=== PATIENT | male | born 1975 | race African-American/Black ===

== ENCOUNTER 2023-09-25 14:58 | Emergency (ER) | payer SELFPAY ==
[~2023-09-25] VITALS: Ht 177.8 cm; Wt 82.0 kg
[2023-09-25 15:06] VITALS: BP 136/82; PULSE 91; RESP 16; TEMP 98.8; O2SAT 100
[2023-09-25 21:30] LABS: BASOPHILS % 0.6 % (0.0-2.0); EOSINOPHILS % 3.2 % (0.0-5.0); HEMATOCRIT. 40.3 % (42.0-52.0); HEMOGLOBIN. 13.3 g/dL (14.0-18.0); LYMPHOCYTES % 33.6 % (20.0-50.0); MEAN CORPUSCULAR HEMOGLOBIN 29.8 pg (28.0-32.0); MEAN CORPUSCULAR HGB CONC 33.1 g/dL (31.0-37.0); MEAN PLATELET VOLUME 7.1 fl (7.4-10.4); MONOCYTES % 9.5 % (2.0-8.0); NEUTROPHILS % 53.1 % (40.0-76.0); PLATELET 338 x1000/uL (130-400); RED BLOOD CELL COUNT 4.47 mill/uL (4.7-6.1); RED CELL DISTRIBUTION WIDTH 14.3 % (11.6-14.6); WHITE BLOOD COUNT 8.4 x1000/uL (4.5-11.0)
[2023-09-25 21:45] LABS: ACETAMINOPHEN < 2 ug/mL (10-30); CALCIUM 9.6 mg/dL (8.7-10.4); CARBON DIOXIDE 28 mEq/L (21-32); CHLORIDE 103 mEq/L (98-107); CREATININE 1.1 mg/dL (0.6-1.3); GLUCOSE 96 mg/dL (70-105); POTASSIUM 3.7 mEq/L (3.5-5.1); SODIUM 136 mEq/L (136-145); UREA NITROGEN BLOOD 13 mg/dL (9-23)
[2023-09-25 21:52] LABS: ETHANOL BLOOD < 10 mg/dL (<10)
[2023-09-25 22:36] LABS: CLARITY URINE CLEAR (CLEAR); COLOR URINE YELLOW (YELLOW); GLUCOSE URINE NEGATIVE (NEGATIVE); KETONES URINE NEGATIVE (NEGATIVE); LEUKOCYTE ESTERASE URINE NEGATIVE (NEGATIVE); NITRITE URINE NEGATIVE (NEGATIVE); OCCULT BLOOD URINE 2+ (NEGATIVE); PROTEIN URINE NEGATIVE (NEGATIVE); SPECIFIC GRAVITY URINE 1.024 (1.005-1.030)
[2023-09-25 22:44] LABS: *AMPHETAMINES SCREEN URINE PRESUMPTIVE POSITIVE (NEGATIVE); *BARBITURATES SCREEN URINE NEGATIVE (NEGATIVE); *BENZODIAZEPINES SCREEN URINE NEGATIVE (NEGATIVE); *COCAINE SCREEN URINE NEGATIVE (NEGATIVE); CANNABINOID URINE SCREEN PRESUMPTIVE POSITIVE (NEGATIVE); ECSTASY MDMA SCREEN URINE NEGATIVE (NEGATIVE); METHADONE URINE SCREEN Neg (NEGATIVE); OPIATES URINE SCREEN NEGATIVE (NEGATIVE); PHENCYCLIDINE URINE SCREEN NEGATIVE (NEGATIVE)
[2023-09-25 22:51] LABS: BACTERIA URINE 1+; SQUAMOUS EPITHELIAL CELL URINE FEW /lpf (RARE/1+); WBC URINE 0-2 /hpf (0-2)
[2023-09-25] MEDS ORDERED: CEPH500C2 MT (23:12)
== END 2023-09-25 23:42 | disposition home or self-care (01) ==
LOC: ER 17:06
DX: F12.90 Cannabis use, unspecified, uncomplicated (principal); F15.90 Other stimulant use, unspecified, uncomplicated; R31.9 Hematuria, unspecified; J45.909 Unspecified asthma, uncomplicated; I10 Essential (primary) hypertension
CPT/HCPCS: 36415; 80048; 80305; 80307; 80320; 80329; 81003; 85025; 99283; G0480

== ENCOUNTER 2024-07-07 23:34 | Emergency (ER) | payer MEDICAID ==
[~2024-07-07] VITALS: Ht 177.8 cm; Wt 91.0 kg
[~2024-07-07 23:34] MED LIST: CEPH500C2 MT
[2024-07-07 23:38] VITALS: BP 140/80; PULSE 95; RESP 18; TEMP 98.1; O2SAT 98
[2024-07-07] MEDS: GUAIFENESIN 600MG ER TABLET PO SCH (23:45)
[2024-07-07] MEDS: ACETAMINOPHEN 325MG TABLET PO ONE (23:45)
[2024-07-08 04:25] LABS: BASOPHILS % 0.4 % (0.0-2.0); EOSINOPHILS % 2.8 % (0.0-5.0); HEMATOCRIT. 40.5 % (42.0-52.0); HEMOGLOBIN. 13.7 g/dL (14.0-18.0); MEAN CORPUSCULAR HGB CONC 33.8 g/dL (31.0-37.0); MEAN CORPUSCULAR VOLUME 88.9 fL (80.0-94.0); MEAN PLATELET VOLUME 7.1 fl (7.4-10.4); NEUTROPHILS % 56.8 % (40.0-76.0); PLATELET 296 x1000/uL (130-400); RED BLOOD CELL COUNT 4.56 mill/uL (4.7-6.1); RED CELL DISTRIBUTION WIDTH 13.3 % (11.6-14.6); WHITE BLOOD COUNT 7.2 x1000/uL (4.5-11.0)
[2024-07-08 04:36] LABS: CHLORIDE 104 mEq/L (98-107); POTASSIUM 3.8 mEq/L (3.5-5.1); SODIUM 139 mEq/L (136-145)
[2024-07-08 04:37] LABS: CARBON DIOXIDE 28 mEq/L (21-32)
[2024-07-08 04:38] LABS: CALCIUM 9.3 mg/dL (8.7-10.4)
[2024-07-08 04:42] LABS: GLUCOSE 94 mg/dL (70-105)
[2024-07-08 04:43] LABS: UREA NITROGEN BLOOD 8 mg/dL (9-23)
[2024-07-08 05:15] LABS: TROPONIN I HIGH SENSITIVITY < 4 ng/L (3.0-53)
[2024-07-08] MEDS: ACETAMINOPHEN 325MG TABLET PO NR (05:16)
[2024-07-08] MEDS ORDERED: GUAI600T26 MT (05:24)
[2024-07-08] MEDS ORDERED: ACET-2708 MT (05:24)
== END 2024-07-08 05:46 | disposition home or self-care (01) ==
LOC: ER 07-08 00:01
DX: B34.9 Viral infection, unspecified (principal); I10 Essential (primary) hypertension; J45.909 Unspecified asthma, uncomplicated; Z20.822 Contact with and (suspected) exposure to COVID-19
CPT/HCPCS: 36415; 71045; 80048; 84484; 85025; 87426; 93005; 99285